=== PATIENT | male | born 1945 | race Caucasian/White ===

== ENCOUNTER → 2021-08-29 11:38 | Outpatient (BNVA) | payer MEDICARE, OTHER, SELFPAY | PROVIDERS: Referring Provider Student in an Organized Health Care Education/Training Program; Visit Provider Specialist | DX: G40.802 Other epilepsy, not intractable, without status epilepticus (principal) | CPT/HCPCS: 99204 ==

== ENCOUNTER 2021-12-13 11:30 | Outpatient (CLI) | payer MEDICARE, OTHER, SELFPAY ==
--- NOTE | 2021-12-13 12:00 | CT_ITS ---
WS: [id number] CT HEAD TECHNIQUE: Noncontrast and contrast-enhanced CT of the head. 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 COMPARISON: None. DLP: 2140.[address] scans at [facility] use at least one of these dose optimization techniques: automated e xposure control; mA and/or kV adjustment per patient size (includes targeted exams where dose is matc hed to clinical indication); or iterative reconstruction. FINDINGS: No evidence of cranial hemorrhage or mass effect. Ventricular system and basal cisterns are patent. M oderate small vessel changes. Moderate parenchymal volume loss. Chronic lacunar infarcts in the exter nal capsule bilaterally RIGHT greater than LEFT. Lalit appears normal. Chronic lacunar infarct in the LEFT centrum semiovale. Cavernous carotid calcification. 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 Otherwise no abnormal intracranial parenchymal enhancement. Temporal lobes and anteri or hippocampal formations appear normal. Chronic infarct LEFT posterior temporal and parasagittal LEF T occipital lobe with associated encephalomalacia. This extends into the posterior parahippocampal gy christal. Paranasal sinuses are well aerated. Small retention cyst LEFT sphenoid sinus measuring 7 mm. Mastoid air cells well aerated. Normal posterior nasopharynx. CT/CT head wo/w con [id number] IMPRESSION: 1. No evidence of intracranial hemorrhage or mass effect. 2. Chronic infarct involving the LEFT posterior temporal lobe and parasagittal occipital lobe extending into the adjacent posterior parahippocampal gyrus. As sociated encephalomalacia. 3. Anterior temporal lobes and hippocampal formations are normal in appearance . 4. Prominent enhancing venous angioma LEFT cerebellum with associated minerali zation likely associated cavernoma. 5. Moderate small vessel changes with moderate parenchymal volume loss. 6. Chronic lacunar infarcts in the RIGHT greater than LEFT basal ganglia and L EFT centrum semiovale.
[2021-12-13 12:07] LABS: Blood Urea Nitrogen 23 mg/dL (8-23)
[2021-12-13] MEDS: iodixanol 320 mg/mL 100mL Btl IV (12:20)
== END 2021-12-13 11:31 | disposition home or self-care (01) ==
LOC: RAD 11:35
PROVIDERS: PCP Student in an Organized Health Care Education/Training Program; Visit Provider Specialist
DX: G40.802 Other epilepsy, not intractable, without status epilepticus (principal)
CPT/HCPCS: 70470; 82565; 84520

== ENCOUNTER → 2022-02-26 10:26 | Outpatient (BNVA) | payer MEDICARE, SELFPAY | PROVIDERS: PCP Student in an Organized Health Care Education/Training Program; Visit Provider Specialist | DX: G40.802 Other epilepsy, not intractable, without status epilepticus (principal); R41.3 Other amnesia; Z86.73 Personal history of transient ischemic attack (TIA), and cerebral infarction without residual deficits | CPT/HCPCS: 96116; 99214; 99215 ==

== ENCOUNTER 2022-05-28 10:27 | Outpatient (CLI) | payer MEDICARE, SELFPAY ==
--- NOTE | 2022-05-28 10:30 | CT_ITS ---
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 TECHNIQUE: Contiguous axial imaging performed through the brain in 2.5 mm imaging. Bone and soft tiss ue windows. Sagittal and coronal reformats reviewed. All CT scans at [facility] use at least one of these dose optimization techniques: automated exposure control; mA and/or kV adjustment per pa tient size (includes targeted exams where dose is matched to clinical indication); or iterative recon struction. DLP: 1017.18 mGy.cm COMPARISON: 12/13/2021 No acute intracranial hemorrhage or midline shift. Large remote infarct with encephalomalacia involvi ng the parasagittal LEFT occipital lobe with extension into the posterior medial temporal lobe. No pr ogression since the prior study. Additional lacunar infarcts in the basal ganglia, RIGHT greater than LEFT. Small lacunar infarct in the LEFT centrum semiovale ovale. From mild atrophy. Mineralization in the LEFT cerebellum may be a cavernoma associated with the descr ibed venous angioma. Ventricles: Normal size with no hydrocephalus. No inferior displacement of cerebellar tonsils. Paranasal sinuses: As visualized are clear. Mastoid air cells: Well pneumatized. Calvarium and scalp: Skull is intact with no soft tissue edema or swelling. CT/CT head wo con* [id number] IMPRESSION: 1. Stable noncontrast head CT since 12/13/2021. 2. 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 3. LEFT cerebellar mineralization is unchanged. 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 Described on a prior CT with contrast on 12/13/2021. 4. Chronic lacunar infarcts in the basal ganglia, RIGHT greater than LEFT and LEFT centrum semiovale ovale, unchanged.
== END 2022-05-28 10:28 | disposition home or self-care (01) ==
LOC: RAD 10:27
PROVIDERS: PCP Student in an Organized Health Care Education/Training Program; Visit Provider Specialist
DX: G40.802 Other epilepsy, not intractable, without status epilepticus (principal); R41.89 Other symptoms and signs involving cognitive functions and awareness; Z86.73 Personal history of transient ischemic attack (TIA), and cerebral infarction without residual deficits; F32.A Depression, unspecified; R45.4 Irritability and anger; T42.6X5S Adverse effect of other antiepileptic and sedative-hypnotic drugs, sequela
CPT/HCPCS: 70450; 99214

== ENCOUNTER → 2022-10-23 12:13 | Outpatient (BNVA) | payer MEDICARE, SELFPAY | PROVIDERS: PCP Student in an Organized Health Care Education/Training Program; Visit Provider Specialist | DX: G40.802 Other epilepsy, not intractable, without status epilepticus (principal); G40.409 Other generalized epilepsy and epileptic syndromes, not intractable, without status epilepticus; R26.89 Other abnormalities of gait and mobility | CPT/HCPCS: 99214 ==

== ENCOUNTER → 2023-01-22 12:36 | Outpatient (BNVA) | payer MEDICARE, SELFPAY | PROVIDERS: PCP Student in an Organized Health Care Education/Training Program; Visit Provider Specialist | DX: G40.802 Other epilepsy, not intractable, without status epilepticus (principal); R51.9 Headache, unspecified | CPT/HCPCS: 99213 ==

== ENCOUNTER → 2023-09-05 11:35 | Outpatient (BNVA) | payer MEDICARE, SELFPAY | PROVIDERS: PCP Student in an Organized Health Care Education/Training Program; Visit Provider Specialist | DX: G40.802 Other epilepsy, not intractable, without status epilepticus (principal); G30.9 Alzheimer's disease, unspecified; Z86.73 Personal history of transient ischemic attack (TIA), and cerebral infarction without residual deficits | CPT/HCPCS: 96116; 99215 ==

== ENCOUNTER 2023-09-16 08:49 | Outpatient (CLI) | payer MEDICARE, SELFPAY ==
--- NOTE | 2023-09-16 09:00 | CT_ITS ---
WS: [id number] Examination: CT head wo con* [id number] Reason for Exam: R41.3 - Other amnesia Date: September 16, 2023 Comparison: May 28, 2022 DLP: 1125.[address] scans at [facility] use at least one of these dose optimization techniques: automated e xposure control; mA and/or kV adjustment per patient size (includes targeted exams where dose is matc hed to clinical indication); or iterative reconstruction. Findings: There is minimal persistent soft tissue opacity in the left sphenoid. The remainder of the visualized paranasal sinuses are well aerated. No depressed skull fracture is identified. The ventricles and sulci appear within normal limits for the patient's age. There is no midline shift or hydrocephalus Periventricular ischemic microvascular changes are noted. Again encephalomalacia from a remote left cerebellar and posterior right parietal infarcts are noted. There is no intracranial hemorrhage or hematoma. Again the left cerebellar mineralization is noted. Intracranial atherosclerosis is noted with calcification of the distal internal carotid and vertebral arteries are noted. Impression: There is no hemorrhage or hydrocephalus identified. Previous infarcts are noted with white matter change.
== END 2023-09-16 08:50 | disposition home or self-care (01) ==
LOC: RAD 08:51
PROVIDERS: PCP Student in an Organized Health Care Education/Training Program; Visit Provider Specialist
DX: R41.3 Other amnesia (principal); I63.81 Other cerebral infarction due to occlusion or stenosis of small artery; G40.802 Other epilepsy, not intractable, without status epilepticus; G30.9 Alzheimer's disease, unspecified; F02.80 Dementia in other diseases classified elsewhere, unspecified severity, without behavioral disturbance, psychotic disturbance, mood disturbance, and anxiety
CPT/HCPCS: 70450

== ENCOUNTER → 2023-12-10 09:23 | Outpatient (BNVA) | payer MEDICARE, SELFPAY | PROVIDERS: PCP Student in an Organized Health Care Education/Training Program; Visit Provider Specialist | DX: R41.3 Other amnesia (principal); G40.802 Other epilepsy, not intractable, without status epilepticus; I63.89 Other cerebral infarction; G30.9 Alzheimer's disease, unspecified; F02.80 Dementia in other diseases classified elsewhere, unspecified severity, without behavioral disturbance, psychotic disturbance, mood disturbance, and anxiety | CPT/HCPCS: 99214 ==

== ENCOUNTER → 2024-04-09 09:24 | Outpatient (BNVA) | payer MEDICARE, SELFPAY | PROVIDERS: PCP Student in an Organized Health Care Education/Training Program; Visit Provider Specialist | DX: R41.3 Other amnesia (principal); G40.802 Other epilepsy, not intractable, without status epilepticus; I63.89 Other cerebral infarction; G30.9 Alzheimer's disease, unspecified; F02.80 Dementia in other diseases classified elsewhere, unspecified severity, without behavioral disturbance, psychotic disturbance, mood disturbance, and anxiety | CPT/HCPCS: 99214 ==

== ENCOUNTER → 2025-04-06 08:42 | Outpatient (BNVA) | payer MEDICARE, SELFPAY | PROVIDERS: PCP Student in an Organized Health Care Education/Training Program; Visit Provider Specialist | DX: G40.802 Other epilepsy, not intractable, without status epilepticus (principal); R41.3 Other amnesia; I63.89 Other cerebral infarction; G30.9 Alzheimer's disease, unspecified; F02.80 Dementia in other diseases classified elsewhere, unspecified severity, without behavioral disturbance, psychotic disturbance, mood disturbance, and anxiety | CPT/HCPCS: 99214 ==